=== PATIENT | female | born 1975 | race American Indian/Alaskan Native ===

== ENCOUNTER 2020-01-03 19:37 | Emergency (ER) | payer BC, OTHER ==
[~2020-01-03] VITALS: Ht 165.1 cm; Wt 54.4 kg
--- NOTE | 2020-01-03 20:00 | NUR ---
DR. ALMANZAR AT BEDSIDE FOR MSE.
--- NOTE | 2020-01-03 20:00 | NUR ---
Dr Teixeira into eval patient.
--- NOTE | 2020-01-03 20:05 | NUR ---
Patient discharged to home in stable condition. Written and verbal after care instructions given. Patient verbalizes understanding of instructions. Stressed follow up or return to ER for worsening s/s.
[2020-01-03 20:06] VITALS: BP 116/84
== END 2020-01-03 20:06 | disposition home or self-care (01) ==
LOC: ER 19:40
DX: H10.9 Unspecified conjunctivitis (principal)
CPT/HCPCS: A4663